=== PATIENT | male | born 1960 | race Caucasian/White ===

== ENCOUNTER 2022-08-06 17:48 | Emergency (ER) | payer BC, SELFPAY ==
[2022-08-06] VITALS (36 sets, daily range): BP systolic 108–153; BP diastolic 77–98; PULSE 53–75; RESP 18; TEMP 36.2; O2SAT 91–100; BMI 26.3
--- NOTE | 2022-08-06 18:03 | CRLHL7_ITS ---
For Patients: As a result of the Century Cures Act, medical imaging exams and procedure reports are released immediately into your electronic medical record. You may view this report before your referring provider. If you have questions, please contact your health care provider. INDICATION: Leg pain and swelling. TECHNIQUE: Ultrasound venous duplex lower right extremity. Compression venous exam was performed using ward-scale, color Doppler, and spectral Doppler analysis. COMPARISON: None. FINDINGS: Deep veins: Sonographic imaging demonstrates the right common femoral, deep femoral, superficial femoral, popliteal, posterior tibial and the contralateral right common femoral veins to be fully compressible with normal color Doppler blood flow. Superficial veins: Greater saphenous vein is fully compressible. No popliteal cyst. IMPRESSION: Normal right lower extremity venous ultrasound, no sign of deep venous thrombosis. Dictated by Gume Monge MD @ 08/06/2022 8:05:21 PM (Electronically Signed)
--- NOTE | 2022-08-06 18:04 | CRLHL7_ITS ---
For Patients: As a result of the Century Cures Act, medical imaging exams and procedure reports are released immediately into your electronic medical record. You may view this report before your referring provider. If you have questions, please contact your health care provider. INDICATION: SYNCOPE, STROKE SYMPTOMS CT HEAD WITHOUT CONTRAST TECHNIQUE: Multiple axial CT images were performed through the head without intravenous contrast administration. COMPARISON: No previous studies are currently available for comparison. FINDINGS: No acute intracranial hemorrhage is identified. No extra-axial collections are evident and there is no mass effect or midline shift. Ventricles are normal in size and configuration. Brain parenchyma appears normal with unremarkable ward-white differentiation. Osseous structures are within normal limits and no fractures are seen. Included portions of the paranasal sinuses and mastoid air cells are normally aerated. IMPRESSION: Normal non-contrast head CT. Report called to Dr. Bhatia. TIMA COUGHLIN MD [facility] Please note that all CT scans at this facility use dose modulation, iterative reconstruction, and/or weight-based dosing when appropriate to reduce radiation dose to as low as reasonably achievable. Dictated by: Johan Coughlin MD @ 08/06/2022 19:45:38 (Electronically Signed)
--- NOTE | 2022-08-06 18:04 | CT_ITS ---
Patient: AIDEE WEINSTEIN Facility:?[facility] Patient ID:?[id number] Site Patient ID:?[id number]. Site :?[id number] Study:?CT-Chest 95cc Isovue 370-08/06/2022 7:04:06 PM Ordering Physician:Brody Abraham Final Report: Indication: Syncope Technique: Volumetric multidetector CT images of the chest were obtained after the administration of IV contrast. 95 cc Isovue 370 low osmolar intravenous contrast Comparison: None available. Findings: The thoracic inlet and thyroid gland are unremarkable. The thoracic aorta is nonaneurysmal. There is no central filling defect to suggest pulmonary embolism. There are reactive mediastinal and hilar lymph nodes. There is minimal central bronchial thickening. There is bibasilar atelectasis and parenchymal scar with minimal biapical pleural thickening. There is no dense consolidation, effusion or pneumothorax. There is no evidence of pulmonary mass or suspicious pulmonary nodule. The partially visualized upper abdominal viscera are within normal limits. The thoracic vertebral body heights are grossly maintained with trace endplate Schmorl`s defects. There is no significant spondylolisthesis or displaced fracture. Impression: Mild central bronchial thickening with bibasilar atelectasis and parenchymal scar. No dense consolidation is appreciated. No evidence of pulmonary embolus. Please note that all CT scans at this facility use dose modulation, iterative reconstruction, and/or weight-based dosing when appropriate to reduce radiation dose to as low as reasonably achievable. Dictated by See Schmitz MD @ 08/06/2022 7:46:19 PM Signed by:?See Schmitz MD @08/06/2022 7:46:19 PM (Electronic Signature)
--- NOTE | 2022-08-06 18:06 | ED_ITS ---
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 He did not lose control of bowel or bladder. He continues to have pain in his right posterior calf and knee, no shortness of breath, no chest pain, but he feels generally ?weak?. He denies recent illness, fever, chills, chest pain. He has had no history of seizure disorder. He has had no skin rashes, no nuchal rigidity, no diarrhea constipation, reports his p.o. intake of fluid has been limited today Review of Systems Status of ROS: Reports: 10 or more systems reviewed and unremarkable except as noted in History and below [facility] Social History Smoking Status: Current some day smoker Do you use any of these nicotine containing products: None Second hand tobacco smoke exposure: No How often do you have a drink containing alcohol: monthly or less How many standard drinks containing alcohol do you have on a typical day: 1 or 2 How often do you have six or more drinks on one occasion: Never AUDIT-C Alcohol total score: 1 Non-prescribed substance use: marijuana (any form) Exam Narrative: Exam Narrative: Objective: In general the patient is slightly pale but in no apparent distress, cooperative, conversant HEENT is unremarkable other than dry mucous membranes in the mouth, neck is supple Vital signs unremarkable Chest is clear Heart rhythm regular without murmur Abdomen benign soft nontender Extremities without edema, he has got some mild tenderness to the right posterior calf and knee without swelling or redness. Neurologic is grossly nonfocal Skin warm and dry good peripheral perfusion noted Const: Vital Signs, click to edit/add: Vital Signs - 24 hr 08/06/22 17:51 08/06/22 18:03 08/06/22 17:53 Temperature 97.1 F L Pulse Rate 57 L Pulse Rate [Right Pulse Oximeter] 59 L Respiratory Rate 18 Blood Pressure 145/94 H Blood Pressure [Ri ght Upper Arm] 145/94 H Pulse Oximetry 97 98 97 Oxygen Delivery Me thod Room Air 08/06/22 17:54 08/06/22 17:58 08/06/22 18:02 Temperature Pulse Rate 55 L 53 L Pulse Rate [Right Pulse Oximeter] Respiratory Rate Blood Pressure 137/94 H 108/98 H Blood Pressure [Ri ght Upper Arm] Pulse Oximetry 99 98 Oxygen Delivery Me thod 08/06/22 18:10 08/06/22 18:12 08/06/22 18:20 Temperature Pulse Rate 63 62 57 L Pulse Rate [Right Pulse Oximeter] Respiratory Rate Blood Pressure 129/98 H Blood Pressure [Ri ght Upper Arm] Pulse Oximetry 100 100 98 Oxygen Delivery Me thod 08/06/22 18:21 08/06/22 18:30 08/06/22 18:31 Temperature Pulse Rate 54 L 56 L 56 L Pulse Rate [Right Pulse Oximeter] Respiratory Rate Blood Pressure 120/85 116/79 Blood Pressure [Ri ght Upper Arm] Pulse Oximetry 99 99 99 Oxygen Delivery Me thod 08/06/22 18:40 08/06/22 18:43 08/06/22 18:44 Temperature Pulse Rate 59 L 56 L 57 L Pulse Rate [Right Pulse Oximeter] Respiratory Rate Blood Pressure 129/77 Blood Pressure [Ri ght Upper Arm] Pulse Oximetry 98 100 99 Oxygen Delivery Me thod 08/06/22 18:59 08/06/22 19:00 08/06/22 19:02 Temperature Pulse Rate 69 75 61 Pulse Rate [Right Pulse Oximeter] Respiratory Rate Blood Pressure 134/84 Blood Pressure [Ri ght Upper Arm] Pulse Oximetry 99 95 95 Oxygen Delivery Me thod 08/06/22 19:03 08/06/22 19:10 08/06/22 19:16 Temperature Pulse Rate 70 61 74 Pulse Rate [Right Pulse Oximeter] Respiratory Rate Blood Pressure 153/79 H Blood Pressure [Ri ght Upper Arm] Pulse Oximetry 92 97 97 Oxygen Delivery Me thod 08/06/22 19:20 08/06/22 19:30 08/06/22 19:32 Temperature Pulse Rate 64 64 64 Pulse Rate [Right Pulse Oximeter] Respiratory Rate Blood Pressure 130/77 Blood Pressure [Ri ght Upper Arm] Pulse Oximetry 99 97 99 Oxygen Delivery Me thod 08/06/22 19:40 08/06/22 19:47 08/06/22 19:50 Temperature Pulse Rate 61 64 64 Pulse Rate [Right Pulse Oximeter] Respiratory Rate Blood Pressure 123/77 Blood Pressure [Ri ght Upper Arm] Pulse Oximetry 98 99 98 Oxygen Delivery Me thod 08/06/22 20:00 08/06/22 20:01 08/06/22 20:02 Temperature Pulse Rate 63 64 64 Pulse Rate [Right Pulse Oximeter] Respiratory Rate Blood Pressure 120/82 Blood Pressure [Ri ght Upper Arm] Pulse Oximetry 99 97 97 Oxygen Delivery Me thod 08/06/22 20:10 08/06/22 20:20 08/06/22 20:30 Temperature Pulse Rate 62 67 63 Pulse Rate [Right Pulse Oximeter] Respiratory Rate Blood Pressure Blood Pressure [Ri ght Upper Arm] Pulse Oximetry 96 95 91 Oxygen Delivery Me thod 08/06/22 20:32 08/06/22 20:33 08/06/22 20:40 Temperature Pulse Rate 63 66 72 Pulse Rate [Right Pulse Oximeter] Respiratory Rate Blood Pressure 125/79 Blood Pressure [Ri ght Upper Arm] Pulse Oximetry 97 94 97 Oxygen Delivery Me thod Course Vital Signs Vital signs: Initial Vital Signs Temperature 97.1 F L 08/06/22 17:51 Temperature Source Temporal Artery Scan 08/06/22 17:51 Pulse Rate 59 L 08/06/22 17:51 Respiratory Rate 18 08/06/22 17:51 Blood Pressure 145/94 H 08/06/22 17:51 Blood Pressure Mean 111 08/06/22 17:51 Blood Pressure Position Sitting 08/06/22 17:51 Pulse Oximetry 97 08/06/22 17:51 Oxygen Delivery Method 08/06/22 17:51 Vital Signs Temperature 97.1 F L 08/06/22 17:51 Pulse Rate 59 L 08/06/22 17:51 Respiratory Rate 18 08/06/22 17:51 Blood Pressure 145/94 H 08/06/22 17:51 Pulse Oximetry 97 08/06/22 17:51 Oxygen Delivery Method 08/06/22 17:51 Temperature 97.1 F L 08/06/22 17:51 Pulse Rate 72 08/06/22 20:40 Respiratory Rate 18 08/06/22 17:51 Blood Pressure 125/79 08/06/22 20:32 Pulse Oximetry 97 08/06/22 20:40 Oxygen Delivery Method 08/06/22 17:51 Medical Decision Making MDM Narrative Medical decision making narrative: Patient is a 62 year white male who has been largely healthy fairly active physically, he had a pain behind his right knee and then subsequently had a syncopal spell some shaking movements, but then was able to talk after a couple minutes. Subsequent did vomit several times. At this point will check a head CT scan make sure there is no [employer] issue, a chest CT scan make sure there is no PE also do a Doppler scan of the right lower extremity, will check labs including a troponin CBC Chem profile. Will give IV fluid. Make disposition planning pending findings and labs. This is differential diagnosis would be broad including [employer] issue electrolyte abnormality dehydration Addendum: Patient's head CT is read as negative chest CT is unremarkable as well right lower extremity Doppler scan shows no evidence of DVT. He feels much better after fluid his CRP is negative D-dimer is elevated 0.76 but his Doppler scan of his right leg and chest are negative Doppler scan was right leg and CT scanner negative troponin is negative x2 patient has a negative COVID test proBNP is normal he was given aspirin and Zofran. I suspect the patient had pain in his leg and subsequent had a vasovagal spell, he appears to be back to normal now with reassuring laboratory studies an EKG that by my read shows sinus bradycardia rate of 59 beats per minute no acute ST T wave changes first-degree AV block he has had no chest pain, or shortness of breath. I think he is safe to be discharged home, with an assumption that this is a vasovagal spell with a really complete workup that is at this point benign. He should follow up with regular doctor within the next couple of days for reassessment. Return to ED sooner problems or concerns. Lab Data Labs: Lab Results 08/06/22 08/06/22 08/06/22 Range/Units 18:03 18:03 18:03 WBC 10.09 (4.50-11.00) K/uL RBC 5.60 (4.30-5.90) m/uL Hgb 16.4 (13.5-17.5) gm/dL Hct 48.5 (37.0-53.0) % MCV 87 (80-100) fL MCH 29 (26-34) pg MCHC 34 (32-36) gm/dL RDW Coeff of Jina 13.0 (11.5-15.5) % Plt Count 226 (140-440) K/uL Neut % (Auto) 62.7 (42.0-72.0) % Lymph % (Auto) 29.4 (20-44) % Eddy % (Auto) 7.1 (0.0-11.0) % Eos % (Auto) 0.3 (0.0-7.0) % Baso % (Auto) 0.4 (0.0-3.0) % Neut # (Auto) 6.32 (1.7-7.0) K/uL Lymph # (Auto) 2.97 H (0.90-2.90) K/uL Eddy # (Auto) 0.70 (0.00-0.90) K/UL Eos # (Auto) 0.03 (0.00-0.50) K/uL Baso # (Auto) 0.04 (0.00-0.30) K/uL Abs Immat Gran (auto) 0.01 (0.00-0.30) K/uL D-Dimer Quant (PE/DVT) 0.76 H (0.00-0.50) ug/ml Sodium 142 (135-149) mmol/L Potassium 3.1 L (3.6-5.1) mmol/L Chloride 100 (96-114) mmol/L Carbon Dioxide 27 (20-32) mmol/L BUN 22 (7-30) mg/dL Creatinine 1.4 (0.5-1.5) mg/dL Estimated Creat Clear 54.71 Estimated GFR 57 ml/min Glucose 166 H (60-115) mg/dL Calcium 10.2 (8.4-10.6) mg/dL Total Bilirubin 0.9 (0.1-1.5) mg/dL Direct Bilirubin 0.2 (0.0-0.5) mg/dL AST 39 H (12-35) U/L ALT 37 (4-50) U/L Alkaline Phosphatase 115 (40-150) U/L Troponin I < 0.01 L (0.01-0.04) ng/mL C-Reactive Protein < 0.5 L (0.5-1.0) mg/dL NT-Pro-B Natriuret Pep 89 (0-125) PG/mL Total Protein 8.7 H (6.0-8.3) g/dL Albumin 5.3 H (3.3-5.0) g/dL SARS-CoV-2 (PCR) (Negative) 08/06/22 08/06/22 Range/Units 18:03 19:55 WBC (4.50-11.00) K/uL RBC (4.30-5.90) m/uL Hgb (13.5-17.5) gm/dL Hct (37.0-53.0) % MCV (80-100) fL MCH (26-34) pg MCHC (32-36) gm/dL RDW Coeff of Jina (11.5-15.5) % Plt Count (140-440) K/uL Neut % (Auto) (42.0-72.0) % Lymph % (Auto) (20-44) % Eddy % (Auto) (0.0-11.0) % Eos % (Auto) (0.0-7.0) % Baso % (Auto) (0.0-3.0) % Neut # (Auto) (1.7-7.0) K/uL Lymph # (Auto) (0.90-2.90) K/uL Eddy # (Auto) (0.00-0.90) K/UL Eos # (Auto) (0.00-0.50) K/uL Baso # (Auto) (0.00-0.30) K/uL Abs Immat Gran (auto) (0.00-0.30) K/uL D-Dimer Quant (PE/DVT) (0.00-0.50) ug/ml Sodium (135-149) mmol/L Potassium (3.6-5.1) mmol/L Chloride (96-114) mmol/L Carbon Dioxide (20-32) mmol/L BUN (7-30) mg/dL Creatinine (0.5-1.5) mg/dL Estimated Creat Clear Estimated GFR ml/min Glucose (60-115) mg/dL Calcium (8.4-10.6) mg/dL Total Bilirubin (0.1-1.5) mg/dL Direct Bilirubin (0.0-0.5) mg/dL AST (12-35) U/L ALT (4-50) U/L Alkaline Phosphatase (40-150) U/L Troponin I < 0.01 L (0.01-0.04) ng/mL C-Reactive Protein (0.5-1.0) mg/dL NT-Pro-B Natriuret Pep (0-125) PG/mL Total Protein (6.0-8.3) g/dL Albumin (3.3-5.0) g/dL SARS-CoV-2 (PCR) Negative SARS-CoV-2 (Negative) Discharge Plan Discharge Clinical Impression: Syncope Patient Disposition: Home w/ Parent or Adult Condition: Improved Additional Instructions: Light activity, fluids, follow-up with primary care in 48 hours, return to ED sooner problems concerns were concerns or worsening or concerns or questions. Activity Level: Light activity Discharge Diet: Regular Stand Alone Forms: MyHealth Info Instructions
[2022-08-06 18:19] LABS: Basophils Absolute Auto 0.04 K/uL (0.00-0.30); Basophils Percent Auto 0.4 % (0.0-3.0); Eosinophils Absolute Auto 0.03 K/uL (0.00-0.50); Eosinophils Percent Auto 0.3 % (0.0-7.0); Hematocrit 48.5 % (37.0-53.0); Hemoglobin* 16.4 gm/dL (13.5-17.5); Immature Granulocytes Abs Auto 0.01 K/uL (0.00-0.30); Lymphocytes Absolute Auto 2.97 K/uL (0.90-2.90); Lymphocytes Percent Auto 29.4 % (20-44); Mean Corpuscular HGB Conc 34 gm/dL (32-36); Mean Corpuscular Hemoglobin 29 pg (26-34); Mean Corpuscular Volume 87 fL (80-100); Monocytes Percent Auto 7.1 % (0.0-11.0); Neutrophils Absolute Auto 6.32 K/uL (1.7-7.0); Neutrophils Percent Auto 62.7 % (42.0-72.0); Platelet Count* 226 K/uL (140-440); White Blood Count* 10.09 K/uL (4.50-11.00)
[2022-08-06 18:24] LABS: Slide Review Reflex No
[2022-08-06] MEDS: ONDANSETRON 2 MG/ML inj 4 MG IVP (18:28)
[2022-08-06] MEDS: 0.9 % SODIUM CHLORIDE 1000 ml 1,000 ML 6000 ML IV (18:28)
[2022-08-06 18:32] LABS: Albumin* 5.3 g/dL (3.3-5.0); Chloride* 100 mmol/L (96-114); Sodium* 142 mmol/L (135-149)
[2022-08-06 18:33] LABS: Potassium* 3.1 mmol/L (3.6-5.1)
[2022-08-06 18:35] LABS: Alkaline Phosphatase* 115 U/L (40-150); Aspartate Amino Transferase* 39 U/L (12-35); Bilirubin Direct* 0.2 mg/dL (0.0-0.5); Bilirubin Total* 0.9 mg/dL (0.1-1.5); Blood Urea Nitrogen* 22 mg/dL (7-30); Carbon Dioxide* 27 mmol/L (20-32); Creatinine* 1.4 mg/dL (0.5-1.5); Est. Creatinine Clearance* 54.71; Estimated Glomerular Filt Rate 57 ml/min; Total Protein* 8.7 g/dL (6.0-8.3)
[2022-08-06 18:36] LABS: Alanine Aminotransferase* 37 U/L (4-50); Calcium* 10.2 mg/dL (8.4-10.6); Glucose* 166 mg/dL (60-115)
[2022-08-06 18:42] LABS: D Dimer Quantitative* 0.76 ug/ml (0.00-0.50)
[2022-08-06 18:43] LABS: C Reactive Protein* < 0.5 mg/dL (0.5-1.0)
[2022-08-06 18:44] LABS: NT Pro B Type NatriureticPept* 89 PG/mL (0-125)
[2022-08-06 18:50] LABS: Troponin I* < 0.01 ng/mL (0.01-0.04)
[2022-08-06 18:54] LABS: SARS PCR* Negative SARS-CoV-2 (Negative)
[2022-08-06] MEDS: ASPIRIN 81 MG TAB.CHEW 324 MG PO (19:48)
[2022-08-06 20:32] LABS: Troponin I* < 0.01 ng/mL (0.01-0.04)
== END 2022-08-06 20:59 | disposition home or self-care (01) ==
PROVIDERS: Emergency Provider Family Medicine
DX: R55 Syncope and collapse (principal)
CPT/HCPCS: 36415; 70450; 71260; 80048; 80076; 83880; 84484; 85025; 85379; 86140; 87635; 93005; 93971; 94761; 96374; 99285; 99291; A9270; J2405; J7030; Q9967